=== PATIENT | female | born 1980 | race Caucasian/White ===

== ENCOUNTER 2021-10-03 11:38 | Emergency (ER) | payer MEDICAID, SELFPAY ==
[2021-10-03 13:55] VITALS: BP 126/72; PULSE 74; RESP 18; TEMP 36.9; O2SAT 100; BMI 22.3
[2021-10-03 14:15] LABS: UTC Influenza A Antigen Negative (Negative); UTC Influenza B Antigen Negative (Negative); UTC Strep Screen (Rapid) Negative (Negative)
--- NOTE | 2021-10-03 14:35 | HMH.EDUTC ---
[facility] [place] Clinical Impression: Viral upper respiratory tract infection with cough Headache Qualifiers: Headache type: unspecified Headache chronicity pattern: unspecified pattern Intractability: not intractable Qualified Code(s): R51.9 - Headache, unspecified Disposition: Home, Self-Care Condition on Discharge: Good Instructions: Cough, DI for Chronic Pain -- Adult Additional Instructions: *Monitor Temp, Over the counter Motrin or Tylenol as directed/as needed Tylenol every 4 hours and Motrin every 6 hours (as long as your family doctor has told you that you can take it) for fever or pain. and straight to ER if unable to lower temp less than 101.0 after medication given *Warm salt water gargles may help to soothe the throat *Throat Lozenges *Warm fluids like tea with honey may help to soothe the throat *Sleep elevated *Humidifier/Vaporizer Your throat swab was sent for culture. Those results are typically sent to your primary care. Be sure to follow up in 2-3 days with your family doctor/primary care physician if no improvement so they can review those result and treat if necessary. If you don?t have a primary care doctor, I recommend you get one but in the mean time, you will have to return to a walk in clinic Follow up IMMEDIATELY for new or worsening symptoms or no Noticeable improvement over the next 48-72 hours. 911 for difficulty breathing or swallowing You were tested for today for COVID19 and had a complete upper Respiratory Panel your test result should be back in the next 24-48 hours, you may check your results on the [facility] My Health Portal if you have trouble you may call Make sure to take your Vitamins Vit. C Vit D and Zinc if you can take them Prescriptions: Brompheniramine/Pseudoephed/Dm [Bromfed Dm Cough Syrup] 5 - 10 ml PO Q46H PRN #200 ml PRN Reason: Cough Transmission Status: Received by [facility] #[id number] Referrals: Safia Noble MD [Primary Care Provider] - As needed Time of Disposition: 14:39 Medical Decision Making - Cole Inquiry Pt receiving controlled substance: No Cole was queried for this patient: No Vital Signs: 10/03/21 13:55 Temperature 98.4 F Temperature Source Oral Pulse Rate [Left] 74 Respiratory Rate 18 Blood Pressure [Right Arm] 126/72 Blood Pressure Mean [Right Arm] 90 02 Sat by Pulse Oximetry 100 - Lab Data Lab results reviewed: Yes: I reviewed the patient's lab results. Lab Results 10/03/21 13:59: Influenza Type A Ag Negative, Influenza Type B Ag Negative 10/03/21 13:59: Strep Scn Rapid Clinic Negative Orders (Tests/Meds): ED MEDICATIONS Discontinued Medications Generic Name Dose Route Start Last Admin Trade Name Lucy PRN Reason Stop Dose Admin Ubrogepant 50 mg 10/03/21 14:35 10/03/21 14:40 Ubrogepant 50mg Tablet PO 10/03/21 14:36 50 mg ONCE ONE Administration ORDERS Category Date Time Status Strep Screen Confirmation Stat Micro 10/03/21 13:59 Received Medical Decision Narrative: Patient states that headache is better and starting to let up [facility] [place] - General Stated complaint: Migraine, not feeling to well Time Seen by Provider: 10/03/21 14:35 Mode of Arrival: Ambulatory Source of Information: Patient Limitations: No Limitations Description of Symptoms (Recalled from Triage Doc. by RN): pt c/o a cough, RASHEED, fever and sore throat x1 wk. HEENT Symptoms (Recalled from RN notes): Yes Resp Symptoms (Recalled from RN notes): Yes Skin Symptoms (Recalled from RN notes): No MS Symptoms (Recalled from RN notes): No Functional Status (Recalled from RN notes): wnl - History of Present Illness Provider Complaint: Patient states that she has a history of migraine headaches States that she doesnt take any medications for them anymore States that she took Excedrin Migraine earlier but hasnt helped States that she has also been having sore throat, nasal congestion and cough so she came in to get checked for
[2021-10-03 15:23] VITALS: BP 126/72; PULSE 74; RESP 18; TEMP 36.9
== END 2021-10-03 15:25 | disposition home or self-care (01) ==
PROVIDERS: Nurse Practitioner; Emergency Provider Emergency Medicine; PCP Internal Medicine Gastroenterology
DX: J06.9 Acute upper respiratory infection, unspecified (principal)
CPT/HCPCS: 87804; 87880; 99212; C9803; G0463; U0003; U0005

== ENCOUNTER 2022-03-27 13:53 | Emergency (ER) | payer MEDICAID, SELFPAY ==
[2022-03-27 14:00] VITALS: BP 125/72; PULSE 102; RESP 22; O2SAT 97; BMI 25.4
[2022-03-27 14:10] VITALS: BP 125/72; PULSE 102; RESP 22; TEMP 36.9; O2SAT 97; BMI 25.4
[2022-03-27 15:08] VITALS: BP 125/72; PULSE 102; RESP 22; TEMP 36.9; O2SAT 97
--- NOTE | 2022-03-27 15:08 | EXP.UTC ---
Discharge Plan Disposition Patient Disposition: Home, Self-Care Condition: Good Prescriptions Prescriptions: New azithromycin [Zithromax Z-Mazin] 250 mg tablet See Rx Instructions .ROUTE .COMPLEX Qty: 6 0RF Rx Instructions: For 250 mg dose pack: take 500 mg today (day 1), then 250 mg for 4 days (days 2-5) methylprednisolone [Medrol (Mazin)] 4 mg tablets,dose pack See Rx Instructions .Route .COMPLEX 6 Days Qty: 21 0RF Rx Instructions: taper pack; gfuyjgkdjtpqqsc-qimapmjas-VP [Bromfed DM] 2-30-10 mg/5 mL syrup 10 ml PO Q4H PRN (Reason: Cough) Qty: 240 0RF No Action ujqhalujolajrhx-fquuwcllh-YP 118 ML syrup 5 - 10 ml PO Q46H PRN (Reason: Cough) Qty: 200 0RF Referrals Follow up/Referrals: Provider,Referral, MD [Primary Care Provider] - See instructions Activity Restrictions/Add. Instructions Additional Instructions/Restrictions: *Monitor Temp, Over the counter Motrin or Tylenol as directed/as needed Tylenol every 4 hours and Motrin every 6 hours (as long as your family doctor has told you that you can take it) for fever or pain. and straight to ER if unable to lower temp less than 101.0 after medication given *Warm salt water gargles may help to soothe the throat *Throat Lozenges? *Warm fluids like tea with honey may help to soothe the throat? *Sleep elevated *Humidifier/Vaporizer *Bromfed may cause drowsiness. Know how it effects you (your child) before driving, caring for small child, or sending your child to school. Not other antihistamines/allergy medications while taking bromfed Follow up IMMEDIATELY for new or worsening symptoms or no Noticeable improvement over the next 48-72 hours. 911 for difficulty breathing or swallowing You were tested for today for COVID19 your test result should be back in the next 24-48 hours, you check your results on the [facility] My Health Portal Make sure to take your Vitamins Vit. C Vit D and Zinc if you can take them Clinical Impressions Clinical Impression: URI (upper respiratory infection) Stand Alone Forms Stand Alone Forms: Work/School Release Instructions Patient Instructions: COVID-19 Viral Test, Sore Throat, DI for Sinusitis Discharge ED Provider: Jo Sr [facility] General Stated complaint: headache,not feeling well Mode of Arrival: Ambulatory Source of Information: Patient Limitations: No Limitations Time Seen by Provider: 03/27/22 15:08 Description of Symptoms (Recalled from Triage Doc. by RN): PATIENT C/O HEADACHE, CHILLS, SOA, CONGESTION, COUGH WITH GREEN MUCOUS, AND BAD TASTE IN MOUTH SINCE FRIDAY. RECENTLY EXPOSED TO COVID AND FLU HEENT Symptoms (Recalled from RN notes): Yes Resp Symptoms (Recalled from RN notes): Yes Skin Symptoms (Recalled from RN notes): No MS Symptoms (Recalled from RN notes): No Functional Status (Recalled from RN notes): WNL History of Present Illness Provider Complaint: Patient states that she has been around people at work that has had COVID and flu States that today she was having sinus pain and pressure, drainage in the back of her throat and at times she has been coughing up greenish yellow mucous like she is blowing from her nose States that she was still feeling bad today and had a little SOA with coughing so she came in Related Data Previous Rx's Medication Instructions Recorded mhvjutykanizoce-lpkbkblzyudfdjr-FP 5 - 10 ml PO Q46H PRN Cough #200 mL 10/03/21 2 mg-30 mg-10 mg/5 mL oral syrup azithromycin 250 mg tablet See Rx Instructions PO .COMPLEX #6 03/27/22 (Zithromax Z-Mazin) tabs fnvhtrznygoqztq-plwnjloxrxrdzfy-YG 10 ml PO Q4H PRN Cough #240 mL 03/27/22 2 mg-30 mg-10 mg/5 mL oral syrup (Bromfed DM) methylprednisolone 4 mg tablets in See Rx Instructions .Route 03/27/22 a dose pack (Medrol (Mazin)) .COMPLEX 6 days #21 tabs Allergies Allergy/AdvReac Type Severity Reaction Status Date / Time ibuprofen [From Motrin] Allergy Verified 03/27/22 14:10 phenobarbital
[2022-03-27 15:14] LABS: UTC Influenza A Antigen Negative (Negative); UTC Influenza B Antigen Negative (Negative)
== END 2022-03-27 15:28 | disposition home or self-care (01) ==
PROVIDERS: Emergency Provider Nurse Practitioner
DX: U07.1 COVID-19 (principal)
CPT/HCPCS: 87804; 99212; C9803; G0463; U0003; U0005